=== PATIENT | female | born 1950 | race Two or more races ===

== ENCOUNTER 2016-10-24 05:50 | Emergency (ER) | payer MEDICARE, BC ==
[~2016-10-24] VITALS: Ht 167.6 cm; Wt 102.5 kg
[2016-10-24] MEDS ORDERED: OLME20TA15 PO (05:57)
--- NOTE | 2016-10-24 06:00 | NUR ---
PT A/OX4 BREATHING EFFORTLESSLY ON ROOM AIR, PT STATES SHE STARTED FEELING PALPITATIONS 3 HOURS AGO, PT DENIES CHEST PAIN AT THIS TIME AND STATES SHE DID NOT TAKE ANYTHING FOR THE PALPITATIONS, PT PUT IN GOWN, ON MONITOR, VSS, PT REFUSING IV AT THIS TIME BUT STATE SHE IS OK WITH BLOOD WORK, URINE SAMPLE COLLECTED AND SENT TO LAB, MD MADE AWARE WILL CONTINUE TO MONITOR.
[2016-10-24] MEDS ORDERED: IV NS 0.9% 500 ML BAG IV ONE (06:30)
[2016-10-24 06:43] LABS: BASOPHILS % (AUTO) 0.4 % (0.0-2.0); EOSINOPHILS # (AUTO) 0.3 /CMM (0.0-0.7); EOSINOPHILS % (AUTO) 3.6 % (0.0-6.0); HEMATOCRIT 42 % (33-45); LYMPHOCYTES # (AUTO) 1.6 /CMM (0.8-4.8); LYMPHOCYTES % (AUTO) 18.5 % (20.0-44.0); MEAN CORPUSCULAR HEMOGLOBIN 30 PG (26.0-33.0); MEAN CORPUSCULAR HGB CONC 33 g/dl (31.0-36.0); MEAN CORPUSCULAR VOLUME 91 fL (82-100); MONOCYTES # (AUTO) 0.6 /CMM (0.1-1.30); MONOCYTES % (AUTO) 7.6 % (2.0-12.0); NEUTROPHILS % (AUTO) 69.9 % (43.0-81.0); PLATELET COUNT (AUTO) 203 /CMM (150-450); RDW COEFFICIENT OF VARIATION 13.9 (11.5-15.0); RED BLOOD CELL COUNT(AUTO) 4.65 MIL/uL (4.0-5.2); WHITE BLOOD COUNT (AUTO) 8.5 K/uL (4.3-11.0)
[2016-10-24 06:44] LABS: APPEARANCE,URINE CLEAR (CLEAR); BILIRUBIN,URINE NEGATIVE (NEGATIVE); BLOOD, URINE NEGATIVE Ery/uL (NEGATIVE); KETONES,URINE NEGATIVE (NEGATIVE); LEUKOCYTE ESTERASE ,URINE NEGATIVE (NEGATIVE); NITRITE, URINE NEGATIVE (NEGATIVE); PH,URINE 6.5 (5.0-8.0); PROTEIN,URINE NEGATIVE (NEGATIVE); UGLUCOSE NEGATIVE (NEGATIVE); UROBILINOGEN,URINE 0.2 EU/dL (0.2)
[2016-10-24 06:45] LABS: COLOR,URINE STRAW (YELLOW)
[2016-10-24 06:54] LABS: CALCIUM, SERUM 9.9 mg/dL (8.5-10.1); CARBON DIOXIDE 30 mmol/L (21-32); CHLORIDE 107 mmol/L (98-107); CREATININE 0.8 mg/dL (0.6-1.3); GLUCOSE 91 mg/dL (74-106); POTASSIUM 3.3 mmol/L (3.5-5.1); SODIUM SERUM 145 mmol/L (136-145); UREA NITROGEN, BLOOD 22 mg/dL (7-18)
[2016-10-24 06:55] LABS: INR 0.93 (0.87-1.13); PROTHROMBIN TIME 9.9 SECS (9.5-12.7)
--- NOTE | 2016-10-24 07:12 | NUR ---
PT RESTING IN BED COMFORTABLY. PT STATES RELIEF AND "MY HEART FEELS LIKE ITS NOT RACING" AT THIS TIME. DENIES PAIN.
[2016-10-24 07:19] LABS: TROPONIN I < 0.017 ng/mL (0.00-0.056)
[2016-10-24] MEDS ORDERED: POTASSIUM CHLORIDE 20 MEQ TAB.PRT.SR PO ONE ×2 (07:30→07:42)
[2016-10-24 07:57] VITALS: BP 126/79
== END 2016-10-24 08:01 | disposition home or self-care (01) ==
LOC: ER 05:51
DX: R00.2 Palpitations (principal); E87.6 Hypokalemia
CPT/HCPCS: 36415; 71010; 80048; 81001; 84484; 85025; 85730; 93005; 99285; A4606; 81000-TC; Z7610